=== PATIENT | male | born 1995 | race Caucasian/White ===

== ENCOUNTER 2016-08-09 15:56 | Emergency (ER) | payer OTHER ==
[~2016-08-09] VITALS: Ht 185.4 cm; Wt 99.8 kg
[2016-08-09] MEDS ORDERED: LORAZEPAM 2 MG/ML VIAL ONE (16:10)
[2016-08-09] MEDS ORDERED: ZIPRASIDONE IM 20 MG VIAL. IM ONE (16:15)
[2016-08-09] MEDS ORDERED: IV NORMAL SALINE 1000ML BAG 1,000 ML IV ONE (16:15)
[2016-08-09] MEDS ORDERED: LORAZEPAM 2 MG/ML VIAL IV ONE (16:15)
--- NOTE | 2016-08-09 16:24 | ED.ADGEN ---
Adult General HPI HPI Patient is a 21 year old man, with no reported past medical history, who presents via EMS with report of being found lying on the floor of his cell "blue ", with blood noted at the lips, and drug paraphernalia in the cell. Patient presents with correctional facility officers, patient had been agitated and required Versed en route via EMS. At this time the patient is awake, alert, he is denying all complaints, and denies taking any drugs. Correctional officers present state the patient was found as stated, lying on the floor for cell, with spittle and swallowed blood on his lips, there was no loss of pulse or breathing, however the patient was "turning colors", they did roll him over, at that time they try to move into the bed patient did become pink and red in the face, and then became combative. Patient is in handcuffs and shackles upon arrival to the ED. While he initially cooperated with my interview and examination, patient became agitated, and required Ativan and Geodon. Review of Systems Review of Systems Constitutional: Denies fever or chills. [] Eyes: Denies change in visual acuity. [] HENT: Denies nasal congestion or sore throat. [] Respiratory: Denies cough or shortness of breath. [] Cardiovascular: Denies chest pain or edema. [] GI: Denies abdominal pain, nausea, vomiting, bloody stools or diarrhea. [] : Denies dysuria. [] Musculoskeletal: Denies back pain or joint pain. [] Integument: Denies rash. [] Neurologic: Denies headache, focal weakness or sensory changes. [] Endocrine: Denies polyuria or polydipsia. [] Lymphatic: Denies swollen glands. [] Psychiatric: Denies depression or anxiety. [] Current Medications Current Medications Current Medications Medications (Trade) Dose Ordered Sig/Karoline Start Time Stop Time Status Last Admin Dose Admin Lorazepam (Ativan) 2 mg STK-MED ONCE 08/09/16 16:10 08/09/16 16:11 DC Sodium Chloride (Iv Sodium Chloride 0.9% 1000ml Bag) 1,000 ml @ 1,000 mls/hr 1X ONCE 08/09/16 16:15 08/09/16 17:14 DC 08/09/16 16:28 1,000 MLS/HR Ziprasidone (Geodon Im) 20 mg 1X ONCE 08/09/16 16:15 08/09/16 16:16 DC 08/09/16 16:17 20 MG Allergies Allergies Allergies Coded Allergies Type Severity Reaction Last Updated Verified No Known Drug Allergies 08/09/16 No Physical Exam Physical Exam Constitutional: Well developed, well nourished, no acute distress, non-toxic appearance. [] HENT: Normocephalic, atraumatic, bilateral external ears normal, oropharynx moist, no oral exudates, nose normal. [] Eyes: PERRLA, EOMI, conjunctiva normal, no discharge. [] Neck: Normal range of motion, no tenderness, supple, no stridor. [] Cardiovascular:Heart rate regular rhythm, no murmur, S1, S2, rubs or gallops. [] Lungs & Thorax: Bilateral breath sounds clear to auscultation, no wheezing, rhonchi, rales. No chest tenderness or crepitus. [] Abdomen: Bowel sounds normal, soft, no tenderness, no masses, no pulsatile masses. [] Skin: Warm, dry, no erythema, no rash. [] with a small ulceration noted on the underside of his chin, due to restraints when he was combative. No other signs of trauma identified. Back: No tenderness, no CVA tenderness. [] Extremities: No tenderness, no cyanosis, no clubbing, ROM intact, no edema. Negative Homans sign. [] Neurologic: Alert and oriented X 3, normal motor function, normal sensory function, no focal deficits noted. [] Psychologic: Affect normal, judgement normal, mood normal. [] Current Patient Data Vital Signs Vital Signs Date Time Temp Pulse Resp B/P Pulse Ox O2 Delivery O2 Flow Rate FiO2 08/09/16 18:03 72 14 122/63 100 Room Air 08/09/16 15:56 98.5 98.5 Lab Values Laboratory Tests Test 08/09/16 15:59 08/09/16 16:05 08/09/16 16:45 08/09/16 17:10 White Blood Count 8.4x10^3/uL (4.0-11.0) Red Blood Count 3.78x10^6/uL (4.30-5.70) L Hemoglobin 12.6g/dL (13.0-17.5) L Hematocrit 36.5% (39.0-53.0) L Mean Corpuscular Volume 97fL (79-100) Mean Corpuscular Hemoglobin 33pg (25-35) Mean Corpuscular Hemoglobin Concent 34g/dL (31-37) Red Cell Distribution Width 12.5% (11.5-14.5) Platelet Count 151x10^3/uL (140-400) Neutrophils (%) (Auto) 86% (31-73) H Lymphocytes (%) (Auto) 8% (24-48) L Monocytes (%) (Auto) 6% (0-9) Eosinophils (%) (Auto) 0% (0-3) Basophils (%) (Auto) 0% (0-3) Neutrophils # (Auto) 7.2x10^3uL (1.8-7.7) Lymphocytes # (Auto) 0.7x10^3/uL (1.0-4.8) L Monocytes # (Auto) 0.5x10^3/uL (0.0-1.1) Eosinophils # (Auto) 0.0x10^3/uL (0.0-0.7) Basophils # (Auto) 0.0x10^3/uL (0.0-0.2) Segmented Neutrophils % 94% (35-66) H Lymphocytes % 6% (24-48) L Platelet Estimate Adequate (ADEQUATE) Sodium Level 147mmol/L (136-145) H Potassium Level 4.7mmol/L (3.5-5.1) Chloride Level 109mmol/L (98-107) H Carbon Dioxide Level 29mmol/L (21-32) Anion Gap 9 (6-14) Blood Urea Nitrogen 22mg/dL (8-26) Creatinine 1.0mg/dL (0.7-1.3) Estimated GFR (Cockcroft-Gault) 92.6 BUN/Creatinine Ratio 22 (6-20) H Glucose Level 137mg/dL (70-99) H Calcium Level 9.0mg/dL (8.5-10.1) Total Bilirubin 0.5mg/dL (0.2-1.0) Aspartate Amino Transferase (AST) 20U/L (15-37) Alanine Aminotransferase (ALT) 30U/L (16-63) Alkaline Phosphatase 69U/L (46-116) Myoglobin 122ng/mL (16-96) H Troponin I Quantitative < 0.017ng/mL (0.000-0.055) Total Protein 7.3g/dL (6.4-8.2) Albumin 4.1g/dL (3.4-5.0) Albumin/Globulin Ratio 1.3 (1.0-1.7) DO-Jog-I-Type Natriuretic Peptide 121pg/mL (0-124) Urine Collection Type Unknown Urine Color Yellow Urine Clarity Clear Urine pH 6.5 Urine Specific [place] 1.025 Urine Protein Negativemg/dL (NEG-TRACE) Urine Glucose (UA) Negativemg/dL (NEG) Urine Ketones (Stick) Negativemg/dL (NEG) Urine Blood Negative (NEG) Urine Nitrite Negative (NEG) Urine Bilirubin Negative (NEG) Urine Urobilinogen Dipstick 1.0mg/dL (0.2 mg/dL) Urine Leukocyte Esterase Negative (NEG) Urine RBC 0/HPF (0-2) Urine WBC 1-4/HPF (0-4) Urine Squamous Epithelial Cells None/LPF Urine Bacteria Few/HPF (0-FEW) Urine Mucus Slight/LPF Urine Opiates Screen Neg (NEG) Urine Methadone Screen Neg (NEG) Urine Barbiturates Neg (NEG) Urine Phencyclidine Screen Neg (NEG) Urine Amphetamine/Methamphetamine Neg (NEG) Urine Benzodiazepines Screen Pos (NEG) Urine Cocaine Screen Neg (NEG) Urine Cannabinoids Screen Neg (NEG) Urine Ethyl Alcohol Neg (NEG) Lactic Acid Level 1.5mmol/L (0.4-2.0) Laboratory Tests 08/09/16 15:59 Laboratory Tests 08/09/16 15:59 EKG EKG EC: Sinus rhythm, heart rate 89 bpm, upright axis, QTC of 378, VA 146, QRS of 84, contour abnormalities is noted in V2, with mild ST elevation, no evidence of other elevation consistent with STEMI or other acute ischemia, abnormal ECG as stated, although changes may be consistent with patient's age and body habitus. As interpreted by me. Radiology/Procedures Radiology/Procedures [] [facility] [address] [place] [address] IMAGING REPORT Signed PATIENT: ROBERT WHITE ACCOUNT: [id number] : 1995 LOCATION: ER AGE: 21 SEX: M EXAM STATUS: PRE ER ORD. PHYSICIAN: MATT HANKINS DO REASON: AMS PROCEDURE: PORTABLE CHEST 1V Indication change in mental status. Protocol study. A single view of the chest was obtained. No prior imaging of the chest is available. The heart and pulmonary vessels appear normal. The mediastinum has a normal appearance. The lungs are clear. IMPRESSION: No acute finding apparent in the chest DICTATED and SIGNED BY: SANTOS FRANCO MD DATE: 08/09/16 164 CC: MATT HANKINS DO ~ [facility] [address] [facility] [place] [address] IMAGING REPORT Signed PATIENT: ROBERT WHITE ACCOUNT: [id number] : 1995 LOCATION: ER AGE: 21 SEX: M EXAM STATUS: PRE ER ORD. PHYSICIAN: MATT HANKINS DO REASON: AMS PROCEDURE: HEAD AND CERVICAL SPINE WO CT head and cervical spine Indication:ams, trauma? Reason: AMS / Spl. Instructions: / History: Comparison: None Technique: Multiple contiguous axial images were obtained through the cervical spine. Coronal and sagittal reformations were created. Findings: CT head: Ventricles are midline without evidence of dilatation. Normal garza-white differentiation is maintained. There is no extra-axial fluid collection, intraparenchymal hemorrhage, mass or acute infarct. Visualized orbits, paranasal sinuses and the mastoid air cells are clear. CT cervical spine: Alignment and curvature are within normal limits. The occipital condyles articulate normally with the lateral masses of C1. The odontoid is intact. Vertebral body heights are well maintained. No perching of the facets. Visualized lung apices are clear. Visualized soft tissues of the neck are within normal limits. No significant degenerative changes are identified. Impression: No acute intracranial process detected. Negative for cervical spine fracture. PQRS STATEMENT One or more of the following individualized dose reduction techniques were utilized for this study: 1.Automated exposure control 2.Adjustment of the mA and/or kV according to patient size 3.Use of iterative reconstruction technique Electronically signed by: Linda Camarillo MD (Aug 09, 2016 17:15:05) DICTATED and SIGNED BY: LINDA CAMARILLO MD DATE: 08/09/16 7235 CC: MATT HANKINS DO ~ Course & Med Decision Making Course & Med Decision Making Pertinent Labs and Imaging studies reviewed. (See chart for details) As stated, patient presented awake, alert and oriented 4, denying all complaints, denying ingestions. Trauma identified and examination. Correctional officers state the patient had paraphernalia for smoking in the room lying next to him on the bed, and they believe that he may have used some adulterated K2, which is commonly abused by inmates. Although patient was initially cooperative with my examination and questioning, he then became agitated when we attempted to obtain blood and urine, required a Code Garza to be called, with physical restraints placed, due to patient and staff safety, was administered and 1mg of Ativan, and then 20 mg of Geodon with good effect. Head and neck are obtained, which revealed no evidence of acute normalities. Laboratory studies revealed a mildly elevated myoglobin at 122, with a normal lactic, mildly elevated sodium at 147, other electrolytes within normal limits. On reevaluation patient is resting comfortably, after several hours of observation in the emergency department, is no longer combative. Patient is cooperative with staff and with questioning, and states that he would like to go back to the correctional facility. He has received IV fluids in the ED without issue, ambulatory trial performed, patient ambulating without issue with correctional officers. Presentation and examination is consistent with likely use of adulterated K2 or other substance which did not trigger our drug screen. At this time patient is in stable condition, without any concerning behaviors or findings, therefore will discharge back to the correctional facility area discussed with correctional facility officers, who are in agreement with this plan, patient discharged in stable condition in the company of the correctional facility officers. Dragon Disclaimer Dragon Disclaimer This electronic medical record was generated, in whole or in part, using a voice recognition dictation system. Departure Impression: Primary Impression: Drug abuse Additional Impression: Altered mental status Disposition: 01 HOME, SELF-CARE Condition: IMPROVED Problem Qualifiers Additional Impression: Altered mental status Altered mental status type: transient alteration of awareness Qualified Code : R40.4 - Transient alteration of awareness MATT HANKINS DO Aug 09, 2016 16:24
[2016-08-09 16:37] LABS: GFR 92.6; POTASSIUM 4.7 mmol/L (3.5-5.1)
[2016-08-09 16:46] LABS: BASO % 0 % (0-3); EOS % 0 % (0-3); HEMATOCRIT 36.5 % (39.0-53.0); HEMOGLOBIN 12.6 g/dL (13.0-17.5); LYMPH # 0.7 x10^3/uL (1.0-4.8); LYMPH % 8 % (24-48); MEAN CORPUSCULAR HEMOGLOBIN 33 pg (25-35); MEAN CORPUSCULAR HGB CONC 34 g/dL (31-37); MEAN CORPUSCULAR VOLUME 97 fL (79-100); MONO % 6 % (0-9); NEUT % 86 % (31-73); PLATELET COUNT 151 x10^3/uL (140-400); RED BLOOD COUNT 3.78 x10^6/uL (4.30-5.70); RED CELL DISTRIBUTION WIDTH 12.5 % (11.5-14.5); WHITE BLOOD COUNT 8.4 x10^3/uL (4.0-11.0)
[2016-08-09 16:49] LABS: ALBUMIN 4.1 g/dL (3.4-5.0); ALBUMIN/GLOBULIN RATIO 1.3 (1.0-1.7); TOTAL BILIRUBIN 0.5 mg/dL (0.2-1.0); TOTAL PROTEIN 7.3 g/dL (6.4-8.2)
--- NOTE | 2016-08-09 16:49 | RAD ---
Indication change in mental status. Protocol study. A single view of the chest was obtained. No prior imaging of the chest is available. The heart and pulmonary vessels appear normal. The mediastinum has a normal appearance. The lungs are clear. IMPRESSION: No acute finding apparent in the chest
[2016-08-09 16:56] LABS: BARBITURATES NEG (NEG); BENZODIAZEPINES POS (NEG); CANNABINOIDS NEG (NEG); COCAINE NEG (NEG); ETHANOL, URINE NEG (NEG); METHADONE NEG (NEG); OPIATES NEG (NEG); PHENCYCLIDINE NEG (NEG)
[2016-08-09 17:02] LABS: BACTERIA,URINE FEW /HPF (0-FEW); BILIRUBIN,URINE NEGATIVE (NEG); GLUCOSE,URINE NEGATIVE (NEG); NITRITE,URINE NEGATIVE (NEG); PH,URINE 6.5; PROTEIN,URINE NEGATIVE (NEG-TRACE); RBC,URINE 0 /HPF (0-2)
--- NOTE | 2016-08-09 17:17 | RAD ---
CT head and cervical spine Indication:ams, trauma? Reason: AMS / Spl. Instructions: / History: Comparison: None Technique: Multiple contiguous axial images were obtained through the cervical spine. Coronal and sagittal reformations were created. Findings: CT head: Ventricles are midline without evidence of dilatation. Normal copeland-white differentiation is maintained. There is no extra-axial fluid collection, intraparenchymal hemorrhage, mass or acute infarct. Visualized orbits, paranasal sinuses and the mastoid air cells are clear. CT cervical spine: Alignment and curvature are within normal limits. The occipital condyles articulate normally with the lateral masses of C1. The odontoid is intact. Vertebral body heights are well maintained. No perching of the facets. Visualized lung apices are clear. Visualized soft tissues of the neck are within normal limits. No significant degenerative changes are identified. Impression: No acute intracranial process detected. Negative for cervical spine fracture. PQRS STATEMENT One or more of the following individualized dose reduction techniques were utilized for this study: 1.Automated exposure control 2.Adjustment of the mA and/or kV according to patient size 3.Use of iterative reconstruction technique Electronically signed by: Linda Camarillo MD (Aug 09, 2016 17:15:05)
[2016-08-09 18:03] VITALS: BP 122/63
[2016-08-09 18:41] LABS: PLT ESTIMATE ADEQUATE (ADEQUATE)
--- NOTE | 2016-08-10 07:18 | EKG ---
[facility] [address] [place] [address] Test Date: 2016-08-09 Test Time: 16:22:08 Pat Name: ROBERT WHITE Department: Room: Gender: Soc Analyst: : 1995 Requested By: MATT HANKINS Order Number: [id number] Reading MD: Kimberlyn Martínez Measurements Intervals [place] Rate: P: SC: QRS: QRSD: T: QT: QTc: Interpretive Statements SINUS RHYTHM OLD INFERIOR WALL MYOCARDIAL INFARCTION aBNORMAL ELECTROCARDIOGRAM Electronically Signed On 08-10-2016 19:49:40 CDT by Kimberlyn Martínez
== END 2016-08-09 18:30 | disposition home or self-care (01) ==
LOC: ER 15:56 → EEVIPCON 15:56 → ER 18:30
DX: T40.7X5A Adverse effect of cannabis (derivatives), initial encounter (principal); R41.82 Altered mental status, unspecified; Y92.89 Other specified places as the place of occurrence of the external cause
CPT/HCPCS: 36415; 70450; 71010; 72125; 80053; 81001; 83605; 83874; 83880; 84484; 85007; 85027; 93005; 96361; 96372; 96374; 99285; G0481; J2060; J3486; J7030